=== PATIENT | male | born 1990 | race Caucasian/White ===

== ENCOUNTER 2019-05-08 07:37 | Observation (INO) ==
--- NOTE | 2019-05-08 08:34 | Emergency Department Note ---
Disposition Clinical Impression: GI bleeding Qualifiers: GI bleed type/associated pathology: unspecified gastrointestinal hemorrhage type Qualified Code(s): K92.2 - Gastrointestinal hemorrhage, unspecified Disposition: Admitted As Inpatient Condition: Good Time of Disposition: 11:10 GI Bleed HPI - General Chief complaint: ED GI Bleed Stated complaint: Blood Emesis/ABd Pain Time Seen by Provider: 05/08/19 08:01 Source: patient Limitations: no limitations Nursing Notes Reviewed: Yes Vital Signs Reviewed: Yes - History of Present Illness HPI Narrative: 29-year-old male presents with vomiting blood, and abdominal full. Patient stated he has intermittent abdominal pain with vomited blood for a year. In the past 1 week, his symptoms got worse. Patient could not keep any food down. Any time he ate, he felt fullness of stomach. Only vomiting out the food relieved the discomfort. He noticed coffee-colored emesis mixed with food. Patient also choked with blood and food at night. Pt reported normal bowel movement yesterday. Patient admitted that he was drinking a lot alcohol in the past 1 year. He just quit drinking 2 weeks ago. Patient never was evaluated by primary doctor or GI doctor. Patient irregularly took Prilosec 20 mg by himself. Pt Subjective Complaint: coffee ground emesis Onset (ago): week(s) (1) Consistency: intermittent - Related Data Home Medications Medication Instructions Recorded Confirmed Multivit-Min/Iron/Folic Acid/K 1 each PO DAILY 05/08/19 05/08/19 [Adults Multivitamin Tablet] Omeprazole [PriLOSEC] 20 mg PO DAILY 05/08/19 05/08/19 Allergies Allergy/AdvReac Type Severity Reaction Status Date / Time No Known Allergies Allergy Verified 03/17/16 00:14 Constitutional: Denies: fever, chills Eyes: Denies: eye pain ENT ED: Denies: ear pain Cardiovascular: Denies: chest pain Respiratory: Denies: cough Gastrointestinal: Reports: nausea, vomiting, hematemesis. Denies: abdominal pain Genitourinary: Denies: urgency Musculoskeletal: Denies: back pain Integumentary: Denies: rash Neurological: Denies: headache Psychiatric: Denies: anxiety Endocrine: Denies: fatigue Hematological/Lymphatic: Denies: easy bleeding Allergic/Immunologic: Denies: facial swelling Past Medical History - Past Medical History Medical history: Reports: no medical history Surgical history: Reports: appendectomy, orthopedic, other (And surgery) Psychiatric history: Reports: no psych history - Social History Smoking Status: Never smoker Smokeless Tobacco Status: No Alcohol use: Reports: none Drug use: Reports: marijuana Physical Exam - General Limitations: no limitations General appearance: alert, in no apparent distress - Head Head exam: atraumatic - Eye Eye exam: Present: normal appearance - ENT ENT exam: normal exam - Neck Neck exam: Present: normal inspection - Chest Chest inspection: Present: normal inspection - Respiratory Respiratory exam: Present: normal lung sounds bilaterally - Cardiovascular Cardiovascular exam: Present: regular rate - Abdominal Exam Abdominal exam: Present: soft, Non-Tender - Extremities Exam Extremities exam: Present: normal inspection, full ROM. Absent: tenderness - Back Exam Back exam: Present: normal inspection, full ROM. Absent: tenderness - Neurological Exam Neurological exam: Present: alert, oriented X3 - Psychiatric Psychiatric exam: Present: normal affect, normal mood - Skin Skin exam: Present: warm, intact Course Vital Signs Temperature 98.0 F 05/08/19 07:47 Pulse Rate 69 05/08/19 07:47 Respiratory Rate 16 05/08/19 07:47 Blood Pressure 127/87 05/08/19 07:47 O2 Sat by Pulse Oximetry 98 05/08/19 07:47 Temperature 98.0 F 05/08/19 07:47 Pulse Rate 64 05/08/19 11:18 Respiratory Rate 16 05/08/19 11:18 Blood Pressure 115/69 05/08/19 11:18 O2 Sat by Pulse Oximetry 98 05/08/19 11:18 Oxygen Delivery Oxygen Delivery Room Air GI Bleed - [facility] Narrative Medical decision making narrative: 29 year old male presents with gastricreplax, intermittent hemoemesis for a year. Worsening symptoms for one week. Pt reported coffee color emesis, fullness after eating, choking on food at night. Physical exam: non-toxic looking, afebrile, abdomen soft, no tender to palpation. Labs: Hemoglobin normal, Occult blood: Positive in stool. Abdomen CT no bowel obstruction. I spoke with Dr. Webster. He suggested to admit patient to medicine for endoscopy. Dr. Esparza has seen the patient and agrees the above plan. - Differential Diagnosis Likely: Upper gastrointestinal hemorrhage, melena - Lab Data Lab results reviewed: Yes I reviewed the patient's lab results. Result diagrams: 05/08/19 08:46 05/08/19 08:46 Lab Results 05/08/19 05/08/19 05/08/19 Range/Units 08:46 08:46 09:50 WBC 5.4 (4.3-11.1) K/mcL RBC 4.62 (4.19-5.50) M/mcL Hgb 13.8 (12.9-16.9) g/dL Hct 40.9 (37.5-50.1) % MCV 88.5 (83.0-100.0) fL MCH 29.9 (28.0-33.3) pg MCHC 33.7 (31.6-35.5) g/dL RDW 12.7 (11.5-14.5) % Plt Count 245 (140-400) K/mcL MPV 9.1 L (9.4-12.4) fL Immature Gran % 0.2 (0-4) % Seg Neutrophils % 61.0 % Lymphocytes % 28.0 % Monocytes % 6.1 % Eosinophils % 4.1 % Basophils % 0.6 % Neutrophils # 3.3 (1.6-8.9) K/mcL Lymphocytes # 1.5 (0.6-4.6) K/mcL Monocytes # 0.3 (0.0-1.3) K/mcL Eosinophils # 0.2 (0.0-0.6) K/mcL Basophils # 0.0 (0.0-0.2) K/mcL Sodium 140 (136-145) mEq/L Potassium 4.0 (3.5-5.1) mEq/L Chloride 104 (98-107) mEq/L Carbon Dioxide 30 H (23-29) mEq/L BUN 14 (6-20) mg/dL Creatinine 1.01 (0.70-1.30) mg/dL Est GFR ( Amer) > 60 (> 60) Est GFR (Non-Af Amer) > 60 (> 60) BUN/Creatinine Ratio 14 (6-26) Glucose 96 (70-105) mg/dL Calculated Osmolality 290 (280-300) Calcium 9.7 (8.6-10.3) mg/dL Total Bilirubin 0.5 (0.3-1.0) mg/dL Direct Bilirubin 0.1 (0.0-0.2) mg/dL Indirect Bilirubin 0.4 (0.0-1.2) mg/dL AST 26 (13-39) Units/L ALT 30 (7-52) Units/L Alkaline Phosphatase 65 (34-104) Units/L Serum Total Protein 7.3 (6.4-8.9) g/dL Albumin 4.6 (3.5-5.7) g/dL Globulin 2.7 (2.4-3.5) g/dL Albumin/Globulin Ratio 1.7 (1.1-2.2) Lipase 16 (11-82) Units/L Urine Color Yellow (Yellow) Urine Clarity Turbid A (Clear) Urine pH 8.0 (5.0-8.0) pH Units Ur Specific [place] 1.026 H (1.010-1.025) Urine Protein Trace (Neg-Trace) mg/dL Urine Glucose (UA) Normal (Normal) mg/dL Urine Ketones Negative (Negative) mg/dL Urine Blood Negative (Negative) Urine Nitrite Negative (Negative) Urine Bilirubin Negative (Negative) Urine Urobilinogen Normal (Normal) mg/dL Ur Leukocyte Esterase Negative (Negative) Urine Microscopic RBC 5-15 H (0-3) per hpf Urine Microscopic WBC 0-3 (0-3) per hpf Ur Squamous Epith Cells None Seen (None-Few) per lpf Urine Bacteria None Seen (None-Few) per hpf Hyaline Casts None Seen (None-Few) per lpf Ur Culture Indicated? NO (NO) Stool Occult Bld Scrn (Negative) 05/08/19 Range/Units 10:01 WBC (4.3-11.1) K/mcL RBC (4.19-5.50) M/mcL Hgb (12.9-16.9) g/dL Hct (37.5-50.1) % MCV (83.0-100.0) fL MCH (28.0-33.3) pg MCHC (31.6-35.5) g/dL RDW (11.5-14.5) % Plt Count (140-400) K/mcL MPV (9.4-12.4) fL Immature Gran % (0-4) % Seg Neutrophils % % Lymphocytes % % Monocytes % % Eosinophils % % Basophils % % Neutrophils # (1.6-8.9) K/mcL Lymphocytes # (0.6-4.6) K/mcL Monocytes # (0.0-1.3) K/mcL Eosinophils # (0.0-0.6) K/mcL Basophils # (0.0-0.2) K/mcL Sodium (136-145) mEq/L Potassium (3.5-5.1) mEq/L Chloride (98-107) mEq/L Carbon Dioxide (23-29) mEq/L BUN (6-20) mg/dL Creatinine (0.70-1.30) mg/dL Est GFR ( Amer) (> 60) Est GFR (Non-Af Amer) (> 60) BUN/Creatinine Ratio (6-26) Glucose (70-105) mg/dL Calculated Osmolality (280-300) Calcium (8.6-10.3) mg/dL Total Bilirubin (0.3-1.0) mg/dL Direct Bilirubin (0.0-0.2) mg/dL Indirect Bilirubin (0.0-1.2) mg/dL AST (13-39) Units/L ALT (7-52) Units/L Alkaline Phosphatase (34-104) Units/L Serum Total Protein (6.4-8.9) g/dL Albumin (3.5-5.7) g/dL Globulin (2.4-3.5) g/dL Albumin/Globulin Ratio (1.1-2.2) Lipase (11-82) Units/L Urine Color (Yellow) Urine Clarity (Clear) Urine pH (5.0-8.0) pH Units Ur Specific [place] (1.010-1.025) Urine Protein (Neg-Trace) mg/dL Urine Glucose (UA) (Normal) mg/dL Urine Ketones (Negative) mg/dL Urine Blood (Negative) Urine Nitrite (Negative) Urine Bilirubin (Negative) Urine Urobilinogen (Normal) mg/dL Ur Leukocyte Esterase (Negative) Urine Microscopic RBC (0-3) per hpf Urine Microscopic WBC (0-3) per hpf Ur Squamous Epith Cells (None-Few) per lpf Urine Bacteria (None-Few) per hpf Hyaline Casts (None-Few) per lpf Ur Culture Indicated? (NO) Stool Occult Bld Scrn Positive A (Negative) - Radiology Data Radiology results reviewed: Yes I reviewed the patient's radiology results. TECHNIQUE: CT of the abdomen and pelvis was performed without the administration of intravenous contrast. Multiplanar reformatted images are provided for review. Dose modulation, iterative reconstruction, and/or weight based adjustment of the mA/kV was utilized to reduce the radiation dose to as low as reasonably achievable. COMPARISON: None. HISTORY: ORDERING SYSTEM PROVIDED HISTORY: abd pain, vomiting blood FINDINGS: Lower Chest: There is no consolidation or effusion. Organs: The liver, pancreas, spleen, kidneys and adrenals are unremarkable. GI/Bowel: There is no bowel dilatation, wall thickening or obstruction. Pelvis: The bladder and prostate are unremarkable. Peritoneum/Retroperitoneum: There is no free air, free fluid or intraperitoneal inflammatory change. There is no adenopathy. Bones/Soft Tissues: There is no fracture or aggressive osseous lesion. CT/CT abd pelvis wo no iv no oral IMPRESSION: Negative noncontrast CT of the abdomen and pelvis. D/ / Brennan Merida MD / Brennan Merida MD Interpreting Provider: Brennan Merida MD
[2019-05-08 09:06] LABS: Basophils % 0.6 %; Eosinophils # 0.2 K/mcL (0.0-0.6); Eosinophils % 4.1 %; Hematocrit 40.9 % (37.5-50.1); Hemoglobin 13.8 g/dL (12.9-16.9); Immature Granulocytes % 0.2 % (0-4); Lymphocytes # 1.5 K/mcL (0.6-4.6); Mean Corpuscular HGB Conc 33.7 g/dL (31.6-35.5); Mean Corpuscular Hemoglobin 29.9 pg (28.0-33.3); Mean Corpuscular Volume 88.5 fL (83.0-100.0); Mean Platelet Volume 9.1 fL (9.4-12.4); Monocytes # 0.3 K/mcL (0.0-1.3); Monocytes % 6.1 %; Neutrophils # 3.3 K/mcL (1.6-8.9); Platelet Count 245 K/mcL (140-400); Red Blood Count 4.62 M/mcL (4.19-5.50); Red Cell Distribution Width 12.7 % (11.5-14.5); White Blood Count 5.4 K/mcL (4.3-11.1)
[2019-05-08 09:27] LABS: Alanine Aminotransferase 30 Units/L (7-52); Albumin 4.6 g/dL (3.5-5.7); Albumin/Globulin Ratio 1.7 (1.1-2.2); Alkaline Phosphatase 65 Units/L (34-104); Aspartate Amino Transferase 26 Units/L (13-39); BUN/Creatinine Ratio 14 (6-26); Bilirubin,Direct 0.1 mg/dL (0.0-0.2); Bilirubin,Indirect 0.4 mg/dL (0.0-1.2); Bilirubin,Total 0.5 mg/dL (0.3-1.0); Blood Urea Nitrogen 14 mg/dL (6-20); Calcium 9.7 mg/dL (8.6-10.3); Carbon Dioxide 30 mEq/L (23-29); Chloride 104 mEq/L (98-107); Globulin 2.7 g/dL (2.4-3.5); Glucose 96 mg/dL (70-105); Lipase 16 Units/L (11-82); Osmolality,Calculated 290 (280-300); Sodium 140 mEq/L (136-145); Total Protein 7.3 g/dL (6.4-8.9); eGFR For African Americans > 60 (> 60); eGFR For Non-African Americans > 60 (> 60)
[2019-05-08 10:18] LABS: Bilirubin,Urine Negative (Negative); Blood,Urine Negative (Negative); Clarity,Urine Turbid (Clear); Color,Urine Yellow (Yellow); Glucose,Urine (UA) Normal (Normal); Ketones,Urine Negative (Negative); Leukocyte Esterase,Urine Negative (Negative); Nitrite,Urine Negative (Negative); Protein,Urine Trace mg/dL (Neg-Trace); Specific Gravity,Urine 1.026 (1.010-1.025); Urobilinogen,Urine Normal (Normal)
[2019-05-08 10:22] LABS: Bacteria,Urine None Seen per hpf (None-Few); Hyaline Casts,Urine None Seen per lpf (None-Few); Squamous Epithelial Cell,Urine None Seen per lpf (None-Few); WBC,Urine 0-3 per hpf (0-3)
[2019-05-08] MEDS ORDERED: Pantoprazole 40 MG VIAL IVP ONE (10:27)
[2019-05-08] MEDS ORDERED: Ondansetron 4 MG/2 ML VIAL IVP PRN (11:26)
[2019-05-08] MEDS ORDERED: Naloxone 0.4 MG/ML INJ IVP PRN (11:26)
[2019-05-08] MEDS ORDERED: *HR* LORazepam 2 MG/ML VIAL IVP PRN ×2 (11:29)
[2019-05-08] MEDS ORDERED: Vitamin B Complex/Vit C/Vit E 1 EACH TABLET PO SCH (11:30)
[2019-05-08] MEDS ORDERED: Thiamine (B-1) 100 MG TABLET PO SCH (11:30)
[2019-05-08] MEDS ORDERED: Folic Acid 1 MG TABLET PO SCH (11:30)
[2019-05-08] MEDS ORDERED: D5% in 0.45% NACL 1,000 ML IVC SCH (11:30)
[2019-05-08] MEDS ORDERED: *HR* Propofol 200 MG/20 ML VIAL IVP ONE ×2 (13:42→13:53)
--- NOTE | 2019-05-08 14:05 | Gastroenterology Consult Note ---
<Renan Lucas - Last Filed: 05/08/19 13:57> Date of Encounter: 05/08/19 Time of Encounter: 13:57 - Assessment and plan (1) Coffee ground emesis Status: Chronic Assessment and plan: Patient presented with a chief complaint of early satiety but also mentioned history of coffee ground emesis and melena and severe reflux Due to this history he was admitted for the concern of upper gastrointestinal bleed and gastroenterology evaluation was requested Laboratory analysis revealed CBC and CMP within normal limits with Hemoccult positive for blood Patient is currently nothing by mouth and consented for EGD Medical recommendations will follow EGD Further recommendations per Dr. Smith (2) Melena Status: Chronic (3) GERD (gastroesophageal reflux disease) Status: Chronic Qualifiers: Esophagitis presence: esophagitis presence not specified Qualified Code(s): K21.9 - Gastro-esophageal reflux disease without esophagitis - Time Spent With Patient Total time spent is greater than 50% in coordination of care (as documented) at patient's floor/unit and/or counseling patient: GI History of Present Illness - Data of Consult Patient: new to practice Consult date: 05/08/19 Requesting Physician: Dao York DO - Consult Narrative Reason for consult: coffee ground emesis History of present illness: Mr. Cruz is a 29 year old male with past medical history of GERD and alcohol abuse who presents with the chief complaint of early satiety for one week. He also reports a history of chronic vomiting secondary to GERD, with associated coffee-ground emesis that has been occurring for over a year with intermittent episodes of melena. He also reports a one-year history of alcohol abuse, specifically up to a fifth of liquor per night. He has been concerned about these episodes of coffee-ground emesis and GERD and attributed them to a suspected ulcer related to his alcohol use but was not concerned enough to come to the hospital until he developed early satiety for the last week. Due to his concerns he did stop drinking approximately 2 weeks ago. He also stopped chewing tobacco approximately 2 weeks ago, which he has done since he was a teenager. He now currently vapes. Evaluation in the emergency department revealed laboratory values within normal limits, however due to reported coffee- ground emesis, early satiety and melana he was admitted for suspected gastroin testinal bleed with gastroenterology evaluation requested. On evaluation I did receive the above reported history. Patient also denied aspirin or anticoagulant use or [id number] NSAIDs. He denied family history of cancer specifically GI cancer. He reported appendectomy but denied any other previous abdominal surgery. He confirms his only home medications are Prilosec and a multivitamin. I explained that due to the concern for upper gastrointestinal bleed we would recommend EGD to identify and potentially intervene with any source of bleeding. I informed him that risks of this proc edure are bleeding, infection, perforation, and risks associated with anesthesia. He stated he understood and consented to the procedure and agreed with the plan of care. Past Med Surg Social Fam HX - Past Medical History Medical history: no medical history Psychiatric history: no psych history - Past Surgical History Surgical History: appendectomy, orthopedic, other (And surgery) Additional surgical history: hand surgery, jaw, face, eye - Social History Smoking Status: Never smoker Smokeless Tobacco Status: No Alcohol use: none Drug use: marijuana All systems PM: reviewed and no additional remarkable complaints except as stated - Constitutional Vitals: Temp Pulse Resp BP Pulse Ox 97.9 F 70 19 113/71 98 05/08/19 13:10 05/08/19 13:10 05/08/19 13:10 05/08/19 13:10 05/08/19 13:10 General appearance: Present: A&O X 3, no acute distress - Eye Eye exam: Present: EOMI, PERRL - Respiratory Respiratory exam: Present: CTAB - Cardiovascular Cardiovascular exam: Present: RRR - GI/Abdominal GI/Abdominal exam: Present: normal bowel sounds, soft, tenderness (Tenderness to left lower quadrant). Absent: distended, firm, guarding, hernia, hepatomegaly, pulsatile mass, rigid, splenomegaly - Extremities Exam Extremities exam: Present: radial pulses palpable and symmetrical - Skin Skin exam: Present: dry, warm Results - Labs CBC & Chem 7: 05/08/19 08:46 05/08/19 08:46 Labs: Last Result 05/08/19 08:46 Calcium 9.7 Entire Visit 05/08/19 05/08/19 08:46 08:46 Hgb 13.8 Hct 40.9 Total Bilirubin 0.5 AST 26 ALT 30 Lipase 16 - Impressions Impressions Abdomen/Pelvis CT 05/08/19 08:29 IMPRESSION: Negative noncontrast CT of the abdomen and pelvis. D/ / Brennan Merida MD / Brennan Merida MD Interpreting Provider: Brennan Merida MD Consult Discharge Plan - Plan Instructions: Sucralfate (By mouth), Omeprazole (By mouth) Referrals: Andrea Smith MD [Partnered Physician] - NONE,PCP [Primary Care Provider] - Prescriptions: Sucralfate [Carafate] 1 gm PO QIDAC #120 tablet Omeprazole [PriLOSEC] 40 mg PO BID #60 cap <Andrea Smith - Last Filed: 06/03/19 08:37> Date of Encounter: 05/08/19 - Time Spent With Patient Total time spent is greater than 50% in coordination of care (as documented) at patient's floor/unit and/or counseling patient: GI History of Present Illness - Data of Consult Requesting Physician: Mena Cintron MD - Consult Narrative History of present illness: Mr. Cruz is a 29 year old male - Constitutional Vitals: Temp Pulse Resp BP Pulse Ox 98.0 F 60 21 117/73 96 05/08/19 16:15 05/08/19 16:15 05/08/19 16:15 05/08/19 16:15 05/08/19 16:15 Results - Labs CBC & Chem 7: 05/08/19 08:46 05/08/19 08:46 - Attending Attestation Patient presents with symptoms suggestive of severe GERD and has had some coffee ground emesis. Proceed with EGD I examined this patient and my medical decision-making was reviewed with the Resident Physician. I agree with the documented findings, disposition and treatment plan as described except to the extent set forth below.
--- NOTE | 2019-05-08 14:29 | Anesthesia Evaluation PreOp ---
Date of Encounter: 05/08/19 Time of Encounter: 14:27 - Past History Planned Operation: EGD Cardiac History: Denies any Significant Hx Pulmonary History: Smoker (MARIJUANA) [facility] NURSE History: Other (ALCOHOLISM) Other Medical History: GERD (VOMITING, COFFEE GROUND EMESIS, JORDON), Other (OBESITY) Anesthesia History: No Prior Anesthetic Complications, Past Anesthesia Alcohol Use: none Drug use: marijuana Medications and Allergies Multivit-Min/Iron/Folic Acid/K [Adults Multivitamin Tablet] 1 each PO DAILY 05/08/19 [History] Omeprazole [PriLOSEC] 20 mg PO DAILY 05/08/19 [History] Allergy/AdvReac Type Severity Reaction Status Date / Time No Known Allergies Allergy Verified 03/17/16 00:14 - Meds/Allergy Pre-op Review Medications Reviewed: Yes Allergies Reviewed: Yes Anesthesia Results - Labs 05/08/19 08:46 05/08/19 08:46 Anesthesia Exam Vital Signs/O2 Sat/Glucose, Most Recent Temp Pulse Resp BP Pulse Ox 97.9 F 70 19 113/71 98 05/08/19 13:10 05/08/19 13:10 05/08/19 13:10 05/08/19 13:10 05/08/19 13:10 Weight: 106 KG - BMI 31 NPO (# of Hours): 8 - HEENT Mallampati: I Teeth: Normal - Cardiac Rhythm: Regular - Pulmonary Breath Sounds: bilateral Clear Anesthesia Assess/Plan ASA Score: 3 Anesthetic Plan: MAC Monitoring Plan: Standard Monitors Recovery Plan: Other
[2019-05-08] MEDS ORDERED: 0.9 % Sodium Chloride 500 ML IVC SCH (14:45)
--- NOTE | 2019-05-08 15:41 | Internal Med History&Physical ---
Date of Encounter: 05/08/19 Time of Encounter: 15:15 Internal Medicine - H&P: HPI Chief complaint: Hematemesis Admitted From: Emergency Dept Plans for Post Hospital Care: Home History of present illness: Mr. Cruz is a 29 year old male with known past medical history of GERD and heavy alcohol dependence who quit drinking alcohol a month ago, now he presented to emergency room with worsening epigastric abdominal pain associated with coffee ground emesis. Pt stated he has been having his symptoms for almost a year, however lately they are progressively worsening. He denied any Melena /bright red blood per rectum. He denied any chest pain . In the emergency room his Hb was @ 13.8. He was admitted in the hospital and evaluated by sound editor right away. He did go for endoscopy today. He just came rafael k from the EGD, denied any chest pain/shortness of breath. Tolerating the oral intake well. Past Med Surg Social Fam HX - Past Medical History Medical history: no medical history Psychiatric history: no psych history - Past Surgical History Surgical History: appendectomy, orthopedic, other (And surgery) Additional surgical history: hand surgery, jaw, face, eye - Social History Smoking Status: Never smoker Smokeless Tobacco Status: No Alcohol use: none Drug use: marijuana - Additional Family History Additional family history: Family hsitory reviewed and non contribuitory to current problem. Internal Medicine - H&P: Meds Multivit-Min/Iron/Folic Acid/K [Adults Multivitamin Tablet] 1 each PO DAILY 05/08/19 [History] Omeprazole [PriLOSEC] 20 mg PO DAILY 05/08/19 [History] Allergy/AdvReac Type Severity Reaction Status Date / Time No Known Allergies Allergy Verified 03/17/16 00:14 All Systems PM: A 10-system review of systems was performed and is negative for pertinent findings except as documented above in the HPI. Review of systems: All the systems are reviewed everything is benign except the systems and symptoms I mentioned in the history of present illness - Constitutional Vitals: Temp Pulse Resp BP Pulse Ox 97.9 F 67 18 127/75 99 05/08/19 13:10 05/08/19 14:32 05/08/19 14:32 05/08/19 14:32 05/08/19 14:32 General appearance: Present: cooperative, A&O X 3, no acute distress, answers questions appropriately Exam: a - Head Head exam: Present: atraumatic, normal inspection - Neck Neck exam general surgery: Present: supple - Respiratory Respiratory exam: Present: decreased breath sounds. Absent: rales, respiratory distress, rhonchi, wheezes - Cardiovascular Cardiovascular exam: Present: RRR, +S1, +S2. Absent: tachycardia - GI/Abdominal GI/Abdominal exam: Present: normal bowel sounds, soft, tenderness (Mildly discomfort in epigastric region). Absent: rebound, rigid - Extremities Exam Extremities exam: Present: normal inspection. Absent: calf tenderness, pedal edema, tenderness - Back Exam Back exam: Absent: CVA tenderness (L), CVA tenderness (R) - Neurological Exam Neurological exam: Present: alert, oriented X3 - Psychiatric Psychiatric exam: Present: normal affect, normal mood - Skin Skin exam: Absent: rash Internal Med - H&P Results - Labs CBC & Chem 7: 05/08/19 08:46 05/08/19 08:46 Labs: Short CBC 05/08/19 Range/Units 08:46 WBC 5.4 (4.3-11.1) K/mcL Hgb 13.8 (12.9-16.9) g/dL Hct 40.9 (37.5-50.1) % Plt Count 245 (140-400) K/mcL Neutrophils # 3.3 (1.6-8.9) K/mcL BMP 05/08/19 08:46 Sodium 140 Potassium 4.0 Chloride 104 Carbon Dioxide 30 H BUN 14 Creatinine 1.01 Glucose 96 Calcium 9.7 Liver Function 05/08/19 Range/Units 08:46 Total Bilirubin 0.5 (0.3-1.0) mg/dL Direct Bilirubin 0.1 (0.0-0.2) mg/dL AST 26 (13-39) Units/L ALT 30 (7-52) Units/L Alkaline Phosphatase 65 (34-104) Units/L Albumin 4.6 (3.5-5.7) g/dL Urine 05/08/19 Range/Units 09:50 Urine Color Yellow (Yellow) Urine Clarity Turbid A (Clear) Urine pH 8.0 (5.0-8.0) pH Units Ur Specific [place] 1.026 H (1.010-1.025) Urine Protein Trace (Neg-Trace) mg/dL Urine Glucose (UA) Normal (Normal) mg/dL - Impressions ITS Impressions Abdomen/Pelvis CT 05/08/19 08:29 IMPRESSION: Negative noncontrast CT of the abdomen and pelvis. D/ / Brennan Merida MD / Brennan Merida MD Interpreting Provider: Brennan Merida MD - Assessment and Plan (1) Coffee ground emesis Current Visit: Yes Status: Acute Assessment and plan: Place the pt into Med Surg for observation so far stable Hb cont PPI Added Carafate IV hydration GI on board s/p EGD - showed contact bleeding esophageal ulcer and acute gastritis noticed GI recommended PPI BID and f/u with them as an out pt for repeat EGD (2) GI bleeding Current Visit: Yes Status: Acute Assessment and plan: as above Qualifiers: GI bleed type/associated pathology: unspecified gastrointestinal hemorrhage type Qualified Code(s): K92.2 - Gastrointestinal hemorrhage, unspecified (3) GERD (gastroesophageal reflux disease) Current Visit: Yes Status: Chronic Assessment and plan: on PPI and Carafate Qualifiers: Esophagitis presence: esophagitis presence not specified Qualified Code(s): K21.9 - Gastro-esophageal reflux disease without esophagitis (4) Alcohol dependence Current Visit: Yes Status: Chronic Assessment and plan: quit a month ago cont monitoring Qualifiers: Substance use status: in remission Qualified Code(s): F10.21 - Alcohol dependence, in remission - Time Spent With Patient Total time spent is greater than 50% in coordination of care (as documented) at patient's floor/unit and/or counseling patient:
[2019-05-08 16:16] VITALS: BP 117/73
--- NOTE | 2019-05-08 16:21 | Discharge Summary ---
- NOTES TO OUTPATIENT PROVIDER Notes to Outpatient Provider: f/u with PCP in one week. f/u with GI Dr. Smith in 2 weeks. Orders not resulted at time of discharge: Pending orders 05/08/19 15:01 Surgical Pathology [PTH] Routine Date of Encounter: 05/08/19 Time of Encounter: 16:19 - Discharge Diagnosis (1) Coffee ground emesis Priority: Primary Status: Acute (2) GI bleeding Priority: Primary Status: Acute Qualifiers: GI bleed type/associated pathology: unspecified gastrointestinal hemorrhage type Qualified Code(s): K92.2 - Gastrointestinal hemorrhage, unspecified (3) GERD (gastroesophageal reflux disease) Priority: Secondary Status: Chronic Qualifiers: Esophagitis presence: esophagitis presence not specified Qualified Code(s): K21.9 - Gastro-esophageal reflux disease without esophagitis (4) Alcohol dependence Priority: Secondary Status: Chronic Qualifiers: Substance use status: in remission Qualified Code(s): F10.21 - Alcohol dependence, in remission Hospital course: Mr. Cruz is a 29 year old male with known past medical history of GERD and heavy alcohol dependence who quit drinking alcohol a month ago, now he presented to emergency room with worsening epigastric abdominal pain associated with coffee ground emesis. Pt stated he has been having his symptoms for almost a year, however lately they are progressively worsening. He denied any Melena /bright red blood per rectum. He denied any chest pain . In the emergency room his Hb was @ 13.8. He was admitted in the hospital and evaluated by hydro plant operator right away. He did go for endoscopy today. His EGD showed contact bleeding esophageal ulcer and acute gastritis noticed. GI recommended PPI BID and f/u with them as an out pt for repeat EGD Tolerating the oral intake well. Will d/c him home in stable condition today. - Time Spent with Patient Total time spent providing and/or coordinating discharge services: - Discharge Medications Prescriptions: New Sucralfate [Carafate] 1 gm PO QIDAC #120 tablet Omeprazole [PriLOSEC] 40 mg PO BID #60 cap Continued Multivit-Min/Iron/Folic Acid/K [Adults Multivitamin Tablet] 1 each PO DAILY Discontinued Omeprazole [PriLOSEC] 20 mg PO DAILY Home Medications: Multivit-Min/Iron/Folic Acid/K [Adults Multivitamin Tablet] 1 each PO DAILY 05/08/19 [History] Omeprazole [PriLOSEC] 40 mg PO BID #60 cap 05/08/19 [Rx] Sucralfate [Carafate] 1 gm PO QIDAC #120 tablet 05/08/19 [Rx] Allergies/Adverse Reactions: Allergy/AdvReac Type Severity Reaction Status Date / Time No Known Allergies Allergy Verified 03/17/16 00:14 Date of admission: 05/08/19 11:10 Primary care physician: PCP NONE Consults: 05/08/19 11:29 Consult to Photonics Engineer [CONS] Routine Reason for SW Consult: Alcohol dependence 05/08/19 14:02 Consult to Gastroenterology [CONS] Routine Consulting Provider: Gastroenterology Alyson Reason for Consult: GI bleed Time Notified: 14:02 Call Completed: Yes - Constitutional Vitals: Temp Pulse Resp BP Pulse Ox 98.0 F 60 21 117/73 96 05/08/19 16:15 05/08/19 16:15 05/08/19 16:15 05/08/19 16:15 05/08/19 16:15 General appearance: Present: cooperative, A&O X 3, no acute distress, answers questions appropriately Exam: Gen: Alert, awake, Oriented to time,place and person Chest: Diminished breath sounds B/L, No wheezing, No crackles, No rales Heart: S1S2+ RRR No murmurs Abd: Soft, mild epigastric discomfort, BS +, No organomegaly Ext: No edema, pulses are palpable, No calf tenderness Neuro : No acute focal neuro deficits noticed Skin: No rash. - Patient Status Disposition: Home, Self-Care Condition: Good Overall status at discharge: patient is back to baseline - Discharge Instructions Follow Up With: NONE,PCP [Primary Care Provider] - Andrea Smith MD [Partnered Physician] - - Diet and Activity Activity: increase activity as tolerated Diet: low salt diet
[2019-05-08] MEDS ORDERED: Sucralfate 1 GM TABLET PO SCH (16:30)
[2019-05-08] MEDS ORDERED: Pantoprazole 40 MG VIAL IVP SCH (18:00)
== END 2019-05-08 17:03 | disposition home or self-care (01) ==
LOC: 3BNU 07:37 → EMEROOARM 07:37 → SUATTDRO 11:10 → 3BNU 13:14
PROVIDERS: ADMIT Internal Medicine; ATTEND Family Medicine
PROC: ENDOEBX (2019-05-08 14:30)